=== PATIENT | male | born 2000 | race Caucasian/White ===

== ENCOUNTER 2024-11-15 02:00 | Emergency (ER) | payer MEDICAID ==
[~2024-11-15] VITALS: Ht 167.6 cm; Wt 65.9 kg
[2024-11-15 02:18] VITALS: TEMP 98.1
[2024-11-15 03:30] VITALS: BP 112/69; PULSE 77; RESP 16; O2SAT 98
[2024-11-15] MEDS: PEG 400/HYPROMELLOSE/GLYCERIN 15 ML OPHTHALMIC SOLUTION OU ONE (03:41)
== END 2024-11-15 03:52 | disposition home or self-care (01) ==
LOC: EMS 02:04
DX: H57.11 Ocular pain, right eye (principal); H57.12 Ocular pain, left eye; Z77.098 Contact with and (suspected) exposure to other hazardous, chiefly nonmedicinal, chemicals
CPT/HCPCS: 99283